=== PATIENT | female | born 1940 | race Caucasian/White ===

== ENCOUNTER 2018-01-28 06:31 | Emergency (ER) | payer OTHER | END 2018-01-28 10:33 | disposition home or self-care (01) | LOC: FTE 06:31 | DX: S79.911A Unspecified injury of right hip, initial encounter (principal); I10 Essential (primary) hypertension; J44.9 Chronic obstructive pulmonary disease, unspecified; W01.0XXA Fall on same level from slipping, tripping and stumbling without subsequent striking against object, initial encounter; Y92.9 Unspecified place or not applicable | CPT/HCPCS: 72170; 73510; 73550; 99284-25 ==

== ENCOUNTER 2018-02-01 16:10 | Inpatient (IN) | payer OTHER ==
[2018-02-01 19:41] LABS: ADD MAN DIFF? NO
[2018-02-01 19:45] LABS: BASOPHILS % 0.4 % (0.0-2.0); EOSINOPHILS # 0.1 10^3/ul (0.0-0.5); EOSINOPHILS % 0.8 % (0.0-7.0); HEMATOCRIT 43.3 % (37.0-47.0); HEMOGLOBIN 14.6 g/dl (12.0-16.0); LYMPHOCYTES # 0.8 10^3/ul (0.8-2.9); LYMPHOCYTES % 8.1 % (15.0-51.0); MEAN CORPUSCULAR HEMOGLOBIN 33.8 pg (29.0-33.0); MEAN CORPUSCULAR HGB CONC 33.7 g/dl (32.0-37.0); MEAN CORPUSCULAR VOLUME 100.2 fl (82.0-101.0); MEAN PLATELET VOLUME 9.6 fl (7.4-10.4); MONOCYTE # 0.7 10^3/ul (0.3-0.9); MONOCYTES % 7.5 % (0.0-11.0); NEUTROPHIL # 7.9 10^3/ul (1.6-7.5); NEUTROPHILS % 82.3 % (39.0-77.0); PLATELET COUNT 277 10^3/UL (140-415); RED BLOOD COUNT 4.32 10^6/ul (4.20-5.40); RED CELL DISTRIBUTION WIDTH 13.5 % (11.5-14.5)
[2018-02-01 19:45] LABS: WHITE BLOOD COUNT 9.6 10^3/ul (4.8-10.8)
[2018-02-01] MEDS: SODIUM CHLORIDE 0.9% 1L BAG IV* (19:45)
[2018-02-01] MEDS: CEFEPIME 2GM/50 ML (PMX) 50 ML IVPB (19:48)
[2018-02-01] MEDS: ACETAMINOPHEN 325 MG TAB PO (19:49)
[2018-02-01 20:04] LABS: INR 1.08; PROTIME 14.1 Sec (11.9-14.9); PT RATIO 1.1
[2018-02-01 20:05] LABS: PARTIAL THROMBOPLASTIN TIME 29.2 Sec (25.0-35.0)
[2018-02-01 20:06] LABS: ALANINE AMINOTRANSFERASE 20 IU/L (13-69); ALBUMIN 4.7 g/dl (3.3-4.9); ALBUMIN/GLOBULIN RATIO 0.97; ALKALINE PHOSPHATASE 88 IU/L (42-121); ANION GAP 23 (8-16); ASPARTATE AMINO TRANSFERASE 37 IU/L (15-46); BILIRUBIN,INDIRECT 0.3 mg/dl (0-1.1); BILIRUBIN,TOTAL 0.3 mg/dl (0.2-1.3); BLOOD UREA NITROGEN 26 mg/dl (7-20); CALCIUM 9.8 mg/dl (8.4-10.2); CARBON DIOXIDE 23 mmol/L (21-31); CHLORIDE 100 mmol/L (97-110); GLUCOSE 94 mg/dl (70-220); POTASSIUM 4.4 mmol/L (3.5-5.1); SODIUM 142 mmol/L (135-144); TOTAL PROTEIN 9.5 g/dl (6.1-8.1)
[2018-02-01 20:07] LABS: LACTIC ACID 1.5 mmol/L (0.5-2.0)
[2018-02-01 20:17] LABS: TROPONIN-I 0.023 ng/ml (0.00-0.12)
[2018-02-01] MEDS: VANCOMYCIN 1 GM (PMX) 250 ML IVPB (20:21)
[2018-02-01 21:45] LABS: LACTIC ACID 1.3 mmol/L (0.5-2.0)
[2018-02-01] MEDS ORDERED: ONDANSETRON 4 MG INJ IV ×2 (22:30→23:30)
[2018-02-01 22:38] LABS: ADD UMIC YES; UR ASCORBIC ACID NEGATIVE (NEGATIVE); UR BILIRUBIN (Dip) NEGATIVE (NEGATIVE); UR BLOOD (Dip) NEGATIVE (NEGATIVE); UR CLARITY SLIGHTLY CLOUDY (CLEAR); UR COLOR YELLOW (YELLOW); UR GLUCOSE (Dip) NEGATIVE (NEGATIVE); UR KETONES (Dip) 2+ mg/dL (NEGATIVE); UR LEUKOCYTE ESTERASE (Dip) 2+ Leu/ul (NEGATIVE); UR MUCUS FEW /HPF (NONE SEEN); UR NITRITE (Dip) NEGATIVE (NEGATIVE); UR RBC 4 /HPF (0-5); UR SPECIFIC GRAVITY (Dip) 1.034 (1.003-1.030); UR SQUAMOUS EPITHELIAL CELL FEW /HPF (FEW); UR TOTAL PROTEIN (Dip) 2+ mg/dl (NEGATIVE); UR UROBILINOGEN (Dip) NEGATIVE (NEGATIVE); UR WBC 46 /HPF (0-5)
[2018-02-01] MEDS ORDERED: ALBUTEROL/IPRATROPIUM (NEB) 3 ML AMP HHN (23:30)
[2018-02-01] MEDS ORDERED: NACL 0.9% 3 ML SYG IV (23:30)
[2018-02-01] MEDS ORDERED: NITROGLYCERIN (SL) 0.4 MG TAB SL (23:30)
[2018-02-01] MEDS: DEXTROSE 5%-0.45% NACL 1,000 ML IV (23:55)
[2018-02-02 00:33] LABS: LACTIC ACID 0.8 mmol/L (0.5-2.0)
[2018-02-02] MEDS: ACETAMINOPHEN 325 MG TAB PO ×4 (00:44→20:27)
[2018-02-02 06:33] LABS: ADD MAN DIFF? NO
[2018-02-02 06:46] LABS: WHITE BLOOD COUNT 8.6 10^3/ul (4.8-10.8)
[2018-02-02 06:46] LABS: BASOPHILS % 0.5 % (0.0-2.0); EOSINOPHILS # 0.2 10^3/ul (0.0-0.5); EOSINOPHILS % 2.8 % (0.0-7.0); HEMATOCRIT 36.3 % (37.0-47.0); HEMOGLOBIN 12.2 g/dl (12.0-16.0); LYMPHOCYTES # 0.9 10^3/ul (0.8-2.9); LYMPHOCYTES % 10.4 % (15.0-51.0); MEAN CORPUSCULAR HEMOGLOBIN 33.9 pg (29.0-33.0); MEAN CORPUSCULAR HGB CONC 33.6 g/dl (32.0-37.0); MEAN CORPUSCULAR VOLUME 100.8 fl (82.0-101.0); MEAN PLATELET VOLUME 10.2 fl (7.4-10.4); MONOCYTE # 0.8 10^3/ul (0.3-0.9); MONOCYTES % 8.8 % (0.0-11.0); NEUTROPHIL # 6.6 10^3/ul (1.6-7.5); NEUTROPHILS % 76.7 % (39.0-77.0); PLATELET COUNT 235 10^3/UL (140-415); RED CELL DISTRIBUTION WIDTH 13.3 % (11.5-14.5)
[2018-02-02 07:01] LABS: HEMOGLOBIN A1C 5.3 % (0-5.9)
[2018-02-02 07:06] LABS: ALANINE AMINOTRANSFERASE 22 IU/L (13-69); ALBUMIN 3.6 g/dl (3.3-4.9); ALKALINE PHOSPHATASE 62 IU/L (42-121); ANION GAP 17 (8-16); ASPARTATE AMINO TRANSFERASE 34 IU/L (15-46); BILIRUBIN,INDIRECT 0.2 mg/dl (0-1.1); BILIRUBIN,TOTAL 0.2 mg/dl (0.2-1.3); BLOOD UREA NITROGEN 16 mg/dl (7-20); CALCIUM 8.3 mg/dl (8.4-10.2); CARBON DIOXIDE 22 mmol/L (21-31); CHLORIDE 107 mmol/L (97-110); CHOL/HDL RATIO 3.4 RATIO; CHOLESTEROL 147 mg/dl (100-200); CREATININE 0.55 mg/dl (0.44-1.00); GLUCOSE 96 mg/dl (70-220); HDL CHOLESTEROL 43 mg/dl (33-92); LDL CHOLESTEROL,CALCULATED 83 mg/dl; MAGNESIUM 1.4 mg/dl (1.7-2.5); POTASSIUM 3.8 mmol/L (3.5-5.1); SODIUM 142 mmol/L (135-144); TOTAL PROTEIN 7.2 g/dl (6.1-8.1); TRIGLYCERIDES 103 mg/dl (0-149)
[2018-02-02 07:31] LABS: THYROID STIMULATING HORMONE 0.162 MIU/L (0.465-4.680)
[2018-02-02] MEDS: METOPROLOL 25 MG TAB PO ×2 (09:02→20:28)
[2018-02-02] MEDS: DEXTROSE 5%-0.45% NACL 1,000 ML IV ×2 (09:02→19:22)
[2018-02-02] MEDS ORDERED: ALBUTEROL 0.083% (NEB) 2.5 MG/3 ML AMP HHN (12:00)
[2018-02-02] MEDS: CEFTRIAXONE 1 GM/50 ML (PMX) 50 ML IVPB (12:08)
[2018-02-02] MEDS: AZITHROMYCIN 500MG/NS (PMX) 250 ML IVPB (12:58)
[2018-02-02] MEDS: MAGNESIUM SULFATE 2 GM/50 ML 50 ML IVPB (16:55)
[2018-02-03] MEDS: DEXTROSE 5%-0.45% NACL 1,000 ML IV ×2 (01:30→15:22)
[2018-02-03] MEDS: ACETAMINOPHEN 325 MG TAB PO ×3 (02:10→17:36)
[2018-02-03] MEDS: METOPROLOL 25 MG TAB PO (08:07)
[2018-02-03 10:40] LABS: FREE T4 (FREE THYROXINE) 1.51 ng/dl (0.78-2.44)
[2018-02-03] MEDS: CEFTRIAXONE 1 GM/50 ML (PMX) 50 ML IVPB (11:04)
[2018-02-03] MEDS: AZITHROMYCIN 500MG/NS (PMX) 250 ML IVPB (11:37)
== END 2018-02-03 19:04 | DRG 299 ==
LOC: MS3 22:08 → E/R 16:10
DX: I71.4 Abdominal aortic aneurysm, without rupture (principal); J18.9 Pneumonia, unspecified organism; M25.551 Pain in right hip; J44.9 Chronic obstructive pulmonary disease, unspecified; M77.8 Other enthesopathies, not elsewhere classified; M81.0 Age-related osteoporosis without current pathological fracture; I25.10 Atherosclerotic heart disease of native coronary artery without angina pectoris; I25.2 Old myocardial infarction
CPT/HCPCS: 36415; 71045; 73700; 74176; 80053; 80061; 81001; 83036; 83605; 83735; 84439; 84443; 84484; 85025; 85610; 85730; 87040; 87086; 93306; 96374; 96375; 97110; 97161; 99285-25

== ENCOUNTER 2018-02-18 09:07 | Emergency (ER) | payer OTHER ==
[2018-02-18 10:15] LABS: ADD MAN DIFF? NO
[2018-02-18 10:17] LABS: BASOPHIL # 0.1 10^3/ul (0.0-0.1); BASOPHILS % 0.7 % (0.0-2.0); EOSINOPHILS # 0.3 10^3/ul (0.0-0.5); EOSINOPHILS % 3.9 % (0.0-7.0); HEMOGLOBIN 12.8 g/dl (12.0-16.0); LYMPHOCYTES # 0.9 10^3/ul (0.8-2.9); LYMPHOCYTES % 11.5 % (15.0-51.0); MEAN CORPUSCULAR HEMOGLOBIN 34.9 pg (29.0-33.0); MEAN CORPUSCULAR HGB CONC 32.8 g/dl (32.0-37.0); MEAN CORPUSCULAR VOLUME 106.3 fl (82.0-101.0); MEAN PLATELET VOLUME 9.2 fl (7.4-10.4); MONOCYTE # 0.6 10^3/ul (0.3-0.9); MONOCYTES % 7.9 % (0.0-11.0); PLATELET COUNT 314 10^3/UL (140-415); RED BLOOD COUNT 3.67 10^6/ul (4.20-5.40); RED CELL DISTRIBUTION WIDTH 14.8 % (11.5-14.5)
[2018-02-18 10:37] LABS: ALANINE AMINOTRANSFERASE 24 IU/L (13-69); ALBUMIN 3.6 g/dl (3.3-4.9); ALBUMIN/GLOBULIN RATIO 0.87; ALKALINE PHOSPHATASE 69 IU/L (42-121); ANION GAP 15 (8-16); ASPARTATE AMINO TRANSFERASE 31 IU/L (15-46); BILIRUBIN,INDIRECT 0.2 mg/dl (0-1.1); BILIRUBIN,TOTAL 0.2 mg/dl (0.2-1.3); BLOOD UREA NITROGEN 14 mg/dl (7-20); CALCIUM 9.8 mg/dl (8.4-10.2); CARBON DIOXIDE 28 mmol/L (21-31); CHLORIDE 106 mmol/L (97-110); CREATININE 0.73 mg/dl (0.44-1.00); GLUCOSE 107 mg/dl (70-220); POTASSIUM 4.5 mmol/L (3.5-5.1); SODIUM 144 mmol/L (135-144); TOTAL PROTEIN 7.7 g/dl (6.1-8.1)
[2018-02-18 10:57] LABS: TROPONIN-I < 0.012 ng/ml (0.00-0.12)
== END 2018-02-18 11:40 | disposition home or self-care (01) ==
LOC: E/R 09:07
DX: J18.9 Pneumonia, unspecified organism (principal); R07.9 Chest pain, unspecified; Z87.891 Personal history of nicotine dependence
CPT/HCPCS: 36415; 71045; 80053; 84484; 85025; 93005; 99285-25

== ENCOUNTER 2018-03-02 19:58 | Inpatient (IN) | payer OTHER ==
[2018-03-02] MEDS: ONDANSETRON 4 MG INJ IV (20:48)
[2018-03-02] MEDS ORDERED: ACETAMINOPHEN 500 MG TAB (21:23)
[2018-03-02] MEDS: SODIUM CHLORIDE 0.9% 1L BAG IV* (21:25)
[2018-03-02 21:35] LABS: WHITE BLOOD COUNT 6.9 10^3/ul (4.8-10.8)
[2018-03-02 21:35] LABS: HEMATOCRIT 38.9 % (37.0-47.0); HEMOGLOBIN 13.1 g/dl (12.0-16.0); MEAN CORPUSCULAR HGB CONC 33.7 g/dl (32.0-37.0); MEAN PLATELET VOLUME 10.4 fl (7.4-10.4); PLATELET COUNT 206 10^3/UL (140-415); POSITIVE DIFF @See below; RED BLOOD COUNT 3.74 10^6/ul (4.20-5.40); RED CELL DISTRIBUTION WIDTH 15.1 % (11.5-14.5)
[2018-03-02 21:38] LABS: ADD MAN DIFF? YES
[2018-03-02 21:54] LABS: ALANINE AMINOTRANSFERASE 23 IU/L (13-69); ALKALINE PHOSPHATASE 69 IU/L (42-121); ANION GAP 18 (8-16); ASPARTATE AMINO TRANSFERASE 48 IU/L (15-46); BILIRUBIN,INDIRECT 0.4 mg/dl (0-1.1); BILIRUBIN,TOTAL 0.4 mg/dl (0.2-1.3); BLOOD UREA NITROGEN 17 mg/dl (7-20); CALCIUM 9.2 mg/dl (8.4-10.2); CARBON DIOXIDE 27 mmol/L (21-31); CHLORIDE 95 mmol/L (97-110); CREATININE 0.95 mg/dl (0.44-1.00); GLUCOSE 158 mg/dl (70-220); POTASSIUM 4.2 mmol/L (3.5-5.1); SODIUM 136 mmol/L (135-144); TOTAL PROTEIN 8.4 g/dl (6.1-8.1)
[2018-03-02] MEDS: CEFEPIME 2GM/50 ML (PMX) 50 ML IVPB (21:58)
[2018-03-02 21:59] LABS: INR 1.02; PROTIME 13.5 Sec (11.9-14.9); PT RATIO 1.1
[2018-03-02 22:00] LABS: BAND NEUTROPHILS #M 0.2 10^3/ul (0.0-0.6); BAND NEUTROPHILS % (M) 3 % (0-4); EOSINOPHILS % (M) 1 % (0-7); GIANT THROMBO% (M) 2 % (0-0); LYMPHOCYTES #M 1.3 10^3/ul (0.8-2.9); LYMPHOCYTES % (M) 20 % (15-51); MONOCYTE #M 0.7 10^3/ul (0.3-0.9); MONOCYTES % (M) 11 % (0-11); PLATELET ESTIMATE NORMAL; REACTIVE LYMPHOCYTES #M 0.2 10^3/ul (0.0-0.0); REACTIVE LYMPHOCYTES% (M) 3 % (0-0); SEG NEUT #M 4.2 10^3/ul (1.6-7.5); SEGMENTED NEUTROPHILS (M) % 61 % (39-77); SMUDGE%M 10 % (0-0)
[2018-03-02 22:04] LABS: TROPONIN-I 0.054 ng/ml (0.00-0.12)
[2018-03-02 22:16] LABS: LACTIC ACID 2.4 mmol/L (0.5-2.0)
[2018-03-02 22:56] LABS: ADD UMIC YES; UR ASCORBIC ACID NEGATIVE (NEGATIVE); UR BILIRUBIN (Dip) NEGATIVE (NEGATIVE); UR BLOOD (Dip) NEGATIVE (NEGATIVE); UR CLARITY CLOUDY (CLEAR); UR COLOR YELLOW (YELLOW); UR GLUCOSE (Dip) NEGATIVE (NEGATIVE); UR KETONES (Dip) TRACE mg/dL (NEGATIVE); UR LEUKOCYTE ESTERASE (Dip) NEGATIVE Leu/ul (NEGATIVE); UR MUCUS MANY /HPF (NONE SEEN); UR NITRITE (Dip) NEGATIVE (NEGATIVE); UR RBC 4 /HPF (0-5); UR TOTAL PROTEIN (Dip) 2+ mg/dl (NEGATIVE); UR UROBILINOGEN (Dip) NEGATIVE (NEGATIVE); UR WBC 3 /HPF (0-5)
[2018-03-02 23:25] LABS: LACTIC ACID 0.8 mmol/L (0.5-2.0)
[2018-03-03] MEDS: VANCOMYCIN 1 GM (PMX) 250 ML IVPB (00:10)
[2018-03-03] MEDS ORDERED: VANCOMYCIN IV PER PHARMACY XX (00:30)
[2018-03-03] MEDS ORDERED: LORAZEPAM 0.5 MG TAB PO (00:30)
[2018-03-03] MEDS ORDERED: CEFTRIAXONE 1 GM/50 ML (PMX) 50 ML IVPB (00:30)
[2018-03-03] MEDS ORDERED: ACETAMINOPHEN 325 MG TAB PO (00:30)
[2018-03-03] MEDS ORDERED: MAGNESIUM HYDROXIDE 30ML CUP PO (00:30)
[2018-03-03] MEDS ORDERED: AZITHROMYCIN 500MG/NS (PMX) 250 ML IV (00:30)
[2018-03-03] MEDS ORDERED: NACL 0.9% 3 ML SYG IV (00:30)
[2018-03-03] MEDS ORDERED: ALBUTEROL/IPRATROPIUM (NEB) 3 ML AMP NEB (00:30)
[2018-03-03] MEDS ORDERED: DOCUSATE SODIUM 100 MG CAP PO (00:30)
[2018-03-03] MEDS ORDERED: ONDANSETRON 4 MG INJ IV (00:30)
[2018-03-03] MEDS ORDERED: ZOLPIDEM 5 MG TAB PO (00:30)
[2018-03-03] MEDS: KETOROLAC 30 MG INJ IV (00:42)
[2018-03-03] MEDS: ALBUTEROL/IPRATROPIUM (NEB) 3 ML AMP NEB ×5 (00:52→23:47)
[2018-03-03] MEDS: MAGNESIUM SULFATE 2 GM/50 ML 50 ML IVPB ×2 (00:54→04:50)
[2018-03-03] MEDS: SALMETEROL/FLUTICASONE 500/50 INHA INH ×3 (01:00→21:37)
[2018-03-03] MEDS ORDERED: traMADol 50 MG TAB PO (01:00)
[2018-03-03] MEDS ORDERED: KETOROLAC 15 MG INJ IV (01:00)
[2018-03-03 01:45] LABS: LACTIC ACID 1.9 mmol/L (0.5-2.0)
[2018-03-03] MEDS: SOD CHLORIDE 0.9% 1,000 ML IV ×2 (03:18→05:04)
[2018-03-03] MEDS: LEVOFLOXACIN IVPB (03:26)
[2018-03-03] MEDS: [UNRECOGNIZED DRUG - OTHER] IVPB (03:26)
[2018-03-03] MEDS: OSELTAMIVIR 75 MG CAP PO ×2 (03:26→09:26)
[2018-03-03] MEDS ORDERED: GUAIFENESIN/CODEINE 5ML CUP PO (05:00)
[2018-03-03] MEDS ORDERED: METHYLPREDNISOLONE 125 MG INJ IV (06:00)
[2018-03-03] MEDS: PIPER-TAZO 3.375 GM IV (PMX) 100 ML IVPB (07:01)
[2018-03-03] MEDS: METHYLPREDNISOLONE 125 MG INJ IV ×3 (07:01→22:59)
[2018-03-03] MEDS ORDERED: LACTOBACILLUS ACIDOPHILUS PO (09:00)
[2018-03-03] MEDS: metroNIDAZOLE 0.75% 45 GM GEL TOP ×2 (09:26→23:05)
[2018-03-03] MEDS: FAMOTIDINE 20 MG TAB PO (09:26)
[2018-03-03] MEDS: ENOXAPARIN 40 MG/0.4 ML SYG SC (11:00)
[2018-03-03] MEDS: LACTOBACILLUS RHAMNOSUS CAP PO ×2 (11:00→21:31)
[2018-03-03] MEDS: IOHEXOL 100 ML (12:20)
[2018-03-03] MEDS: SOD CHLORIDE 0.9% 100 ML (12:20)
[2018-03-03] MEDS: MONTELUKAST 10 MG TAB PO (21:31)
[2018-03-03] MEDS: VANCOMYCIN 750 MG in DEXTROSE 5% 150 ML IVPB (23:45)
[2018-03-04] MEDS: LEVOFLOXACIN 250MG/D5W (PMX) 50 ML IVPB (01:01)
[2018-03-04] MEDS: METHYLPREDNISOLONE 125 MG INJ IV (05:25)
[2018-03-04 06:36] LABS: WHITE BLOOD COUNT 9.5 10^3/ul (4.8-10.8)
[2018-03-04 06:36] LABS: HEMATOCRIT 30.3 % (37.0-47.0); HEMOGLOBIN 10.3 g/dl (12.0-16.0); MEAN CORPUSCULAR HEMOGLOBIN 35.4 pg (29.0-33.0); MEAN CORPUSCULAR VOLUME 104.1 fl (82.0-101.0); MEAN PLATELET VOLUME 10.6 fl (7.4-10.4); PLATELET COUNT 183 10^3/UL (140-415); RED BLOOD COUNT 2.91 10^6/ul (4.20-5.40); RED CELL DISTRIBUTION WIDTH 15.1 % (11.5-14.5)
[2018-03-04 06:44] LABS: POSITIVE DIFF @See below
[2018-03-04 06:45] LABS: ADD MAN DIFF? YES
[2018-03-04 06:49] LABS: ALANINE AMINOTRANSFERASE 21 IU/L (13-69); ALBUMIN 2.8 g/dl (3.3-4.9); ALBUMIN/GLOBULIN RATIO 0.73; ALKALINE PHOSPHATASE 53 IU/L (42-121); ANION GAP 9 (8-16); ASPARTATE AMINO TRANSFERASE 37 IU/L (15-46); BLOOD UREA NITROGEN 10 mg/dl (7-20); CALCIUM 8.6 mg/dl (8.4-10.2); CARBON DIOXIDE 28 mmol/L (21-31); CHLORIDE 109 mmol/L (97-110); CREATININE 0.63 mg/dl (0.44-1.00); GLUCOSE 161 mg/dl (70-220); MAGNESIUM 1.7 mg/dl (1.7-2.5); POTASSIUM 3.8 mmol/L (3.5-5.1); SODIUM 142 mmol/L (135-144); TOTAL PROTEIN 6.6 g/dl (6.1-8.1)
[2018-03-04 08:01] LABS: ANISOCYTOSIS 1+ (0-0); BAND NEUTROPHILS #M 1.7 10^3/ul (0.0-0.6); BAND NEUTROPHILS % (M) 18 % (0-4); GIANT THROMBO% (M) 1 % (0-0); LYMPHOCYTES #M 0.5 10^3/ul (0.8-2.9); LYMPHOCYTES % (M) 6 % (15-51); MONOCYTES % (M) 1 % (0-11); PLATELET ESTIMATE NORMAL; SEG NEUT #M 7.3 10^3/ul (1.6-7.5); SEGMENTED NEUTROPHILS (M) % 75 % (39-77); SMUDGE%M 8 % (0-0)
[2018-03-04] MEDS: ALBUTEROL/IPRATROPIUM (NEB) 3 ML AMP NEB ×2 (09:09→16:41)
[2018-03-04] MEDS: LACTOBACILLUS RHAMNOSUS CAP PO ×2 (09:23→20:05)
[2018-03-04] MEDS: SALMETEROL/FLUTICASONE 500/50 INHA INH ×2 (09:23→20:06)
[2018-03-04] MEDS: metroNIDAZOLE 0.75% 45 GM GEL TOP ×2 (09:23→20:06)
[2018-03-04] MEDS: FAMOTIDINE 20 MG TAB PO (09:23)
[2018-03-04] MEDS: ENOXAPARIN 40 MG/0.4 ML SYG SC (09:27)
[2018-03-04] MEDS: predniSONE 20 MG TAB PO (12:28)
[2018-03-04] MEDS: MONTELUKAST 10 MG TAB PO (20:06)
[2018-03-05] MEDS: LEVOFLOXACIN 250MG/D5W (PMX) 50 ML IVPB ×2 (00:36→03:54)
[2018-03-05] MEDS: ALBUTEROL/IPRATROPIUM (NEB) 3 ML AMP NEB ×3 (04:00→09:28)
[2018-03-05] MEDS: metroNIDAZOLE 0.75% 45 GM GEL TOP (09:35)
[2018-03-05] MEDS: ENOXAPARIN 40 MG/0.4 ML SYG SC (09:36)
[2018-03-05] MEDS: LACTOBACILLUS RHAMNOSUS CAP PO (09:36)
[2018-03-05] MEDS: FAMOTIDINE 20 MG TAB PO (09:36)
[2018-03-05] MEDS: predniSONE 20 MG TAB PO (09:36)
[2018-03-05] MEDS: SALMETEROL/FLUTICASONE 500/50 INHA INH (09:37)
[2018-03-05 10:23] LABS: WHITE BLOOD COUNT 14.6 10^3/ul (4.8-10.8)
[2018-03-05 10:23] LABS: HEMOGLOBIN 10.9 g/dl (12.0-16.0); MEAN CORPUSCULAR HEMOGLOBIN 34.2 pg (29.0-33.0); MEAN CORPUSCULAR HGB CONC 32.1 g/dl (32.0-37.0); MEAN CORPUSCULAR VOLUME 106.6 fl (82.0-101.0); MEAN PLATELET VOLUME 10.2 fl (7.4-10.4); PLATELET COUNT 248 10^3/UL (140-415); RED BLOOD COUNT 3.19 10^6/ul (4.20-5.40); RED CELL DISTRIBUTION WIDTH 15.5 % (11.5-14.5)
[2018-03-05 10:25] LABS: ADD MAN DIFF? YES; POSITIVE DIFF @See below
[2018-03-05 10:36] LABS: ANION GAP 12 (8-16); BLOOD UREA NITROGEN 16 mg/dl (7-20); CALCIUM 9.3 mg/dl (8.4-10.2); CARBON DIOXIDE 27 mmol/L (21-31); CHLORIDE 108 mmol/L (97-110); CREATININE 0.88 mg/dl (0.44-1.00); GLUCOSE 128 mg/dl (70-220); POTASSIUM 3.5 mmol/L (3.5-5.1); SODIUM 143 mmol/L (135-144)
[2018-03-05 10:55] LABS: BAND NEUTROPHILS % (M) 7 % (0-4); GIANT THROMBO% (M) 1 % (0-0); LYMPHOCYTES #M 1.4 10^3/ul (0.8-2.9); LYMPHOCYTES % (M) 10 % (15-51); MONOCYTE #M 0.5 10^3/ul (0.3-0.9); MONOCYTES % (M) 4 % (0-11); MYELOCYTES #M 0.1 10^3/ul (0.0-0.0); MYELOCYTES % (M) 1 % (0-0); PLATELET ESTIMATE NORMAL; POLYCHROMASIA 1+ (0-0); REACTIVE LYMPHOCYTES #M 0.4 10^3/ul (0.0-0.0); REACTIVE LYMPHOCYTES% (M) 3 % (0-0); SEG NEUT #M 11.1 10^3/ul (1.6-7.5); SEGMENTED NEUTROPHILS (M) % 75 % (39-77); SMUDGE%M 5 % (0-0)
[2018-03-07 15:41] LABS: ALKALINE PHOSPHATASE 43 U/L (33-130); BONE ISOENZYMES 34 % (28-66); INTESTINAL ISOENZYMES 0 % (1-24); LIVER ISOENZYMES 66 % (25-69); PLACENTAL ISOENZYMES 0 % (0)
== END 2018-03-05 14:05 | disposition home or self-care (01) | DRG 872 ==
LOC: PP2 03-03 00:12 → E/R 19:58
PROVIDERS: Internal Medicine
DX: A41.9 Sepsis, unspecified organism (principal); J44.1 Chronic obstructive pulmonary disease with (acute) exacerbation; J44.0 Chronic obstructive pulmonary disease with (acute) lower respiratory infection; R65.20 Severe sepsis without septic shock; J20.9 Acute bronchitis, unspecified; E86.0 Dehydration; Z72.0 Tobacco use; I71.4 Abdominal aortic aneurysm, without rupture
CPT/HCPCS: 36415; 71045; 71275; 80048; 80053; 81001; 82962; 83605; 83735; 84080; 84484; 85025; 85610; 85730; 87040; 87086; 87400; 87430; 93005; 94640; 94664; 96365; 96375; 99291-25

== ENCOUNTER 2018-03-09 11:32 | Inpatient (IN) | payer OTHER ==
[2018-03-09] MEDS: IPRATROPIUM (NEB) 0.5 MG/2.5 ML AMP INH (12:17)
[2018-03-09] MEDS: ALBUTEROL 0.5% (NEB) 2.5 MG/0.5 ML AMP INH ×2 (12:17→13:45)
[2018-03-09 12:50] LABS: ADD MAN DIFF? NO
[2018-03-09 12:52] LABS: WHITE BLOOD COUNT 12.9 10^3/ul (4.8-10.8)
[2018-03-09 12:52] LABS: ABNORMAL IP MESSAGE 1; BASOPHIL # 0.1 10^3/ul (0.0-0.1); BASOPHILS % 0.4 % (0.0-2.0); HEMATOCRIT 35.2 % (37.0-47.0); HEMOGLOBIN 12.2 g/dl (12.0-16.0); LYMPHOCYTES # 0.4 10^3/ul (0.8-2.9); MEAN CORPUSCULAR HEMOGLOBIN 35.8 pg (29.0-33.0); MEAN CORPUSCULAR HGB CONC 34.7 g/dl (32.0-37.0); MEAN CORPUSCULAR VOLUME 103.2 fl (82.0-101.0); MEAN PLATELET VOLUME 10.4 fl (7.4-10.4); MONOCYTE # 1.1 10^3/ul (0.3-0.9); MONOCYTES % 8.8 % (0.0-11.0); NEUTROPHIL # 11.2 10^3/ul (1.6-7.5); NEUTROPHILS % 86.3 % (39.0-77.0); PLATELET COUNT 366 10^3/UL (140-415); RED BLOOD COUNT 3.41 10^6/ul (4.20-5.40); RED CELL DISTRIBUTION WIDTH 15.8 % (11.5-14.5)
[2018-03-09 12:59] LABS: POSITIVE DIFF @See below
[2018-03-09] MEDS: METHYLPREDNISOLONE 125 MG INJ IV ×2 (13:08→22:36)
[2018-03-09] MEDS: CEFEPIME 1GM/50 ML (PMX) 50 ML IVPB (13:11)
[2018-03-09 13:14] LABS: ALANINE AMINOTRANSFERASE 31 IU/L (13-69); ALBUMIN 3.6 g/dl (3.3-4.9); ALBUMIN/GLOBULIN RATIO 0.81; ALKALINE PHOSPHATASE 109 IU/L (42-121); ANION GAP 20 (8-16); ASPARTATE AMINO TRANSFERASE 31 IU/L (15-46); BILIRUBIN,INDIRECT 0.8 mg/dl (0-1.1); BILIRUBIN,TOTAL 0.8 mg/dl (0.2-1.3); BLOOD UREA NITROGEN 21 mg/dl (7-20); CALCIUM 9.2 mg/dl (8.4-10.2); CARBON DIOXIDE 29 mmol/L (21-31); CHLORIDE 99 mmol/L (97-110); CREATININE 0.61 mg/dl (0.44-1.00); GLUCOSE 167 mg/dl (70-220); POTASSIUM 3.8 mmol/L (3.5-5.1); SODIUM 144 mmol/L (135-144)
[2018-03-09 13:20] LABS: PROTIME 15.4 Sec (11.9-14.9); PT RATIO 1.2
[2018-03-09] MEDS: SODIUM CHLORIDE 0.9% 1L BAG IV* (13:20)
[2018-03-09 13:21] LABS: PARTIAL THROMBOPLASTIN TIME 37.4 Sec (25.0-35.0)
[2018-03-09 13:25] LABS: B-TYPE NATRIURETIC PEPTIDE 3760 PG/ML (0-450)
[2018-03-09] MEDS: VANCOMYCIN 1 GM (PMX) 250 ML IVPB (13:30)
[2018-03-09 13:31] LABS: LACTIC ACID 2.5 mmol/L (0.5-2.0)
[2018-03-09 13:36] LABS: ANISOCYTOSIS 2+ (0-0); BAND NEUTROPHILS #M 1.6 10^3/ul (0.0-0.6); BAND NEUTROPHILS % (M) 13 % (0-4); LYMPHOCYTES #M 0.3 10^3/ul (0.8-2.9); LYMPHOCYTES % (M) 3 % (15-51); MONOCYTE #M 0.6 10^3/ul (0.3-0.9); MONOCYTES % (M) 5 % (0-11); PLATELET ESTIMATE NORMAL; POLYCHROMASIA 1+ (0-0); SEG NEUT #M 10.4 10^3/ul (1.6-7.5); SEGMENTED NEUTROPHILS (M) % 79 % (39-77); SMUDGE%M 3 % (0-0)
[2018-03-09] MEDS ORDERED: SOD CHLORIDE 0.9% 1,000 ML IV (16:48)
[2018-03-09] MEDS ORDERED: ONDANSETRON 4 MG INJ IV (17:00)
[2018-03-09] MEDS ORDERED: ACETAMINOPHEN 325 MG TAB PO (17:00)
[2018-03-09 17:09] LABS: Allen Test ACCEPTAB; Arterial Base Excess -1.4 mmol/L (-3.0-3); Arterial Blood Gas Oxygen Sat 87.2 mmHG (95.0-100.0); Arterial COHb 1.4 % (0.0-3.0); Arterial Fraction of Oxyhgb 85.7 % (93.0-99.0); Arterial HCO3 20.7 mmol/L (22.0-26.0); Arterial MetHb 0.3 % (0.0-1.5); Arterial Total Hemglobin 11.5 g/dl (12.0-18.0); Arterial pCO2 27.3 mmhg (35-45); MODE NASAL CANNULA; Site Left Radial
[2018-03-09 17:12] LABS: LACTIC ACID 2.6 mmol/L (0.5-2.0)
[2018-03-09] MEDS: ALBUTEROL/IPRATROPIUM (NEB) 3 ML AMP HHN (17:22)
[2018-03-09 17:25] LABS: ADD UMIC YES; UR ASCORBIC ACID NEGATIVE (NEGATIVE); UR BILIRUBIN (Dip) NEGATIVE (NEGATIVE); UR BLOOD (Dip) NEGATIVE (NEGATIVE); UR CLARITY CLEAR (CLEAR); UR COLOR YELLOW (YELLOW); UR GLUCOSE (Dip) NEGATIVE (NEGATIVE); UR KETONES (Dip) 2+ mg/dL (NEGATIVE); UR LEUKOCYTE ESTERASE (Dip) 1+ Leu/ul (NEGATIVE); UR NITRITE (Dip) NEGATIVE (NEGATIVE); UR RBC 3 /HPF (0-5); UR SPECIFIC GRAVITY (Dip) 1.029 (1.003-1.030); UR SQUAMOUS EPITHELIAL CELL FEW /HPF (FEW); UR TOTAL PROTEIN (Dip) 2+ mg/dl (NEGATIVE); UR UROBILINOGEN (Dip) NEGATIVE (NEGATIVE); UR WBC 44 /HPF (0-5)
[2018-03-09] MEDS ORDERED: LEVALBUTEROL (NEB) 1.25 MG/0.5 ML AMP HHN (17:30)
[2018-03-09] MEDS ORDERED: VANCOMYCIN IV PER PHARMACY XX (17:30)
[2018-03-09] MEDS: LACTATED RINGER'S 1,000 ML IV (17:51)
[2018-03-09] MEDS: ENOXAPARIN 40 MG/0.4 ML SYG SC (17:51)
[2018-03-09] MEDS: METOPROLOL 50 MG TAB PO (22:37)
[2018-03-09 22:57] LABS: LACTIC ACID 1.4 mmol/L (0.5-2.0)
[2018-03-10] MEDS: ALBUTEROL/IPRATROPIUM (NEB) 3 ML AMP HHN ×4 (01:39→20:17)
[2018-03-10] MEDS: LACTATED RINGER'S 1,000 ML IV (03:53)
[2018-03-10] MEDS: METHYLPREDNISOLONE 125 MG INJ IV ×3 (04:59→20:35)
[2018-03-10 06:07] LABS: WHITE BLOOD COUNT 13.2 10^3/ul (4.8-10.8)
[2018-03-10 06:07] LABS: ABNORMAL IP MESSAGE 1; HEMATOCRIT 27.7 % (37.0-47.0); HEMOGLOBIN 9.4 g/dl (12.0-16.0); MEAN CORPUSCULAR HEMOGLOBIN 35.1 pg (29.0-33.0); MEAN CORPUSCULAR HGB CONC 33.9 g/dl (32.0-37.0); MEAN CORPUSCULAR VOLUME 103.4 fl (82.0-101.0); MEAN PLATELET VOLUME 10.4 fl (7.4-10.4); PLATELET COUNT 271 10^3/UL (140-415); RED BLOOD COUNT 2.68 10^6/ul (4.20-5.40); RED CELL DISTRIBUTION WIDTH 15.9 % (11.5-14.5)
[2018-03-10 06:11] LABS: ADD MAN DIFF? YES; POSITIVE DIFF @See below
[2018-03-10 06:29] LABS: ANION GAP 11 (8-16); BLOOD UREA NITROGEN 18 mg/dl (7-20); CALCIUM 8.5 mg/dl (8.4-10.2); CARBON DIOXIDE 31 mmol/L (21-31); CHLORIDE 107 mmol/L (97-110); CREATININE 0.49 mg/dl (0.44-1.00); GLUCOSE 188 mg/dl (70-220); POTASSIUM 3.7 mmol/L (3.5-5.1); SODIUM 145 mmol/L (135-144)
[2018-03-10 06:38] LABS: ANISOCYTOSIS 2+ (0-0); BAND NEUTROPHILS #M 1.3 10^3/ul (0.0-0.6); BAND NEUTROPHILS % (M) 10 % (0-4); LYMPHOCYTES #M 0.3 10^3/ul (0.8-2.9); LYMPHOCYTES % (M) 3 % (15-51); MONOCYTE #M 0.5 10^3/ul (0.3-0.9); MONOCYTES % (M) 4 % (0-11); PLATELET ESTIMATE NORMAL; POLYCHROMASIA 1+ (0-0); SEG NEUT #M 11.1 10^3/ul (1.6-7.5); SEGMENTED NEUTROPHILS (M) % 83 % (39-77)
[2018-03-10] MEDS: PANTOPRAZOLE (EC) 40 MG TAB PO (09:46)
[2018-03-10] MEDS: GUAIFENESIN LA 600 MG TABSR PO ×2 (09:46→20:34)
[2018-03-10] MEDS: METOPROLOL 50 MG TAB PO ×2 (09:47→20:35)
[2018-03-10] MEDS: ENOXAPARIN 40 MG/0.4 ML SYG SC (09:51)
[2018-03-10] MEDS: FUROSEMIDE 20 MG INJ IV (10:51)
[2018-03-10] MEDS: CEFEPIME 1GM/50 ML (PMX) 50 ML IVPB (13:52)
[2018-03-10] MEDS: VANCOMYCIN 750 MG in DEXTROSE 5% 150 ML IVPB (13:53)
[2018-03-11] MEDS: ALBUTEROL/IPRATROPIUM (NEB) 3 ML AMP HHN ×4 (01:19→19:38)
[2018-03-11] MEDS: METHYLPREDNISOLONE 125 MG INJ IV ×3 (05:15→20:42)
[2018-03-11 07:22] LABS: ADD MAN DIFF? NO
[2018-03-11 07:25] LABS: ABNORMAL IP MESSAGE 1; BASOPHILS % 0.3 % (0.0-2.0); HEMATOCRIT 27.5 % (37.0-47.0); LYMPHOCYTES # 0.4 10^3/ul (0.8-2.9); LYMPHOCYTES % 2.4 % (15.0-51.0); MEAN CORPUSCULAR HEMOGLOBIN 35.2 pg (29.0-33.0); MEAN CORPUSCULAR HGB CONC 32.7 g/dl (32.0-37.0); MEAN CORPUSCULAR VOLUME 107.4 fl (82.0-101.0); MEAN PLATELET VOLUME 10.8 fl (7.4-10.4); MONOCYTE # 0.5 10^3/ul (0.3-0.9); MONOCYTES % 3.3 % (0.0-11.0); NEUTROPHILS % 92.9 % (39.0-77.0); PLATELET COUNT 235 10^3/UL (140-415); RED BLOOD COUNT 2.56 10^6/ul (4.20-5.40); RED CELL DISTRIBUTION WIDTH 15.6 % (11.5-14.5)
[2018-03-11 07:27] LABS: POSITIVE DIFF @See below
[2018-03-11 07:55] LABS: ANION GAP 10 (8-16); BLOOD UREA NITROGEN 19 mg/dl (7-20); CALCIUM 8.4 mg/dl (8.4-10.2); CARBON DIOXIDE 31 mmol/L (21-31); CHLORIDE 103 mmol/L (97-110); CREATININE 0.63 mg/dl (0.44-1.00); GLUCOSE 162 mg/dl (70-220); POTASSIUM 3.7 mmol/L (3.5-5.1); SODIUM 140 mmol/L (135-144)
[2018-03-11 07:58] LABS: B-TYPE NATRIURETIC PEPTIDE 10200 PG/ML (0-450)
[2018-03-11] MEDS: PANTOPRAZOLE (EC) 40 MG TAB PO (08:55)
[2018-03-11] MEDS: METOPROLOL 50 MG TAB PO ×2 (08:55→20:42)
[2018-03-11] MEDS: GUAIFENESIN LA 600 MG TABSR PO ×2 (08:55→20:42)
[2018-03-11] MEDS: ENOXAPARIN 40 MG/0.4 ML SYG SC (09:33)
[2018-03-11 10:37] LABS: MAGNESIUM 1.5 mg/dl (1.7-2.5)
[2018-03-11] MEDS: POTASSIUM CHLORIDE (SR) 20 MEQ TAB PO (11:10)
[2018-03-11] MEDS: FUROSEMIDE 40 MG INJ IV (11:11)
[2018-03-11] MEDS: CEFEPIME 1GM/50 ML (PMX) 50 ML IVPB (12:52)
[2018-03-11] MEDS: MAGNESIUM SULFATE 2 GM/50 ML 50 ML IVPB (15:51)
[2018-03-11] MEDS: VANCOMYCIN 750 MG in DEXTROSE 5% 150 ML IVPB (16:20)
[2018-03-11] MEDS: FUROSEMIDE 40 MG TAB GTB (18:29)
[2018-03-12] MEDS: ALBUTEROL/IPRATROPIUM (NEB) 3 ML AMP HHN ×4 (02:16→19:49)
[2018-03-12] MEDS: METHYLPREDNISOLONE 125 MG INJ IV ×3 (04:58→21:43)
[2018-03-12] MEDS: FUROSEMIDE 40 MG TAB GTB ×2 (05:56→17:12)
[2018-03-12 07:01] LABS: ADD MAN DIFF? NO
[2018-03-12 07:08] LABS: ABNORMAL IP MESSAGE 1; BASOPHILS % 0.2 % (0.0-2.0); HEMATOCRIT 28.5 % (37.0-47.0); HEMOGLOBIN 9.5 g/dl (12.0-16.0); LYMPHOCYTES # 0.4 10^3/ul (0.8-2.9); LYMPHOCYTES % 2.3 % (15.0-51.0); MEAN CORPUSCULAR HEMOGLOBIN 35.2 pg (29.0-33.0); MEAN CORPUSCULAR HGB CONC 33.3 g/dl (32.0-37.0); MEAN CORPUSCULAR VOLUME 105.6 fl (82.0-101.0); MEAN PLATELET VOLUME 10.9 fl (7.4-10.4); MONOCYTE # 0.5 10^3/ul (0.3-0.9); MONOCYTES % 2.9 % (0.0-11.0); NEUTROPHIL # 15.3 10^3/ul (1.6-7.5); NEUTROPHILS % 93.6 % (39.0-77.0); PLATELET COUNT 256 10^3/UL (140-415); RED CELL DISTRIBUTION WIDTH 15.2 % (11.5-14.5)
[2018-03-12 07:08] LABS: WHITE BLOOD COUNT 16.4 10^3/ul (4.8-10.8)
[2018-03-12 07:12] LABS: POSITIVE DIFF @See below
[2018-03-12 07:47] LABS: B-TYPE NATRIURETIC PEPTIDE 11500 PG/ML (0-450)
[2018-03-12 07:48] LABS: ANION GAP 11 (8-16); BLOOD UREA NITROGEN 23 mg/dl (7-20); CALCIUM 8.4 mg/dl (8.4-10.2); CARBON DIOXIDE 34 mmol/L (21-31); CHLORIDE 99 mmol/L (97-110); CREATININE 0.63 mg/dl (0.44-1.00); GLUCOSE 143 mg/dl (70-220); POTASSIUM 3.6 mmol/L (3.5-5.1); SODIUM 140 mmol/L (135-144)
[2018-03-12] MEDS: GUAIFENESIN LA 600 MG TABSR PO ×2 (08:13→21:43)
[2018-03-12] MEDS: PANTOPRAZOLE (EC) 40 MG TAB PO (08:13)
[2018-03-12] MEDS: METOPROLOL 50 MG TAB PO ×2 (08:14→21:43)
[2018-03-12] MEDS: ENOXAPARIN 40 MG/0.4 ML SYG SC (08:29)
[2018-03-12 08:49] LABS: MAGNESIUM 1.7 mg/dl (1.7-2.5)
[2018-03-12] MEDS: POTASSIUM CHLORIDE (SR) 20 MEQ TAB PO (11:11)
[2018-03-12] MEDS: MAGNESIUM SULFATE 3 GM in DEXTROSE 5% 100 ML IVPB (12:01)
[2018-03-12] MEDS: CEFEPIME 1GM/50 ML (PMX) 50 ML IVPB (12:06)
[2018-03-12 16:39] LABS: VANCOMYCIN,TROUGH 5.3 ug/ml (10.0-20.0)
[2018-03-12] MEDS: VANCOMYCIN 750 MG in DEXTROSE 5% 150 ML IVPB (17:13)
[2018-03-12] MEDS: FUROSEMIDE 40 MG INJ IV (19:18)
[2018-03-12] MEDS: AZITHROMYCIN 250 MG in SOD CHLORIDE 0.9% 250 ML IVPB (19:56)
[2018-03-13] MEDS: ALBUTEROL/IPRATROPIUM (NEB) 3 ML AMP HHN ×4 (02:08→19:56)
[2018-03-13] MEDS ORDERED: VANCOMYCIN 750 MG in DEXTROSE 5% 150 ML IVPB (05:00)
[2018-03-13 05:35] LABS: AADO2 Arterial 309.8 mmHg (7.0-24.0); Allen Test ACCEPTAB; Arterial Base Excess 7.2 mmol/L (-3.0-3); Arterial Blood Gas Oxygen Sat 92.8 mmHG (95.0-100.0); Arterial COHb 1.4 % (0.0-3.0); Arterial Fraction of Oxyhgb 91.2 % (93.0-99.0); Arterial HCO3 31.8 mmol/L (22.0-26.0); Arterial MetHb 0.3 % (0.0-1.5); Arterial Total Hemglobin 10.1 g/dl (12.0-18.0); Arterial pCO2 45.3 mmhg (35-45); MODE HFNC; Site Right Radial
[2018-03-13] MEDS: FUROSEMIDE 40 MG INJ IV ×2 (06:17→18:14)
[2018-03-13 07:41] LABS: ADD MAN DIFF? NO
[2018-03-13 07:46] LABS: BASOPHILS % 0.2 % (0.0-2.0); HEMATOCRIT 29.7 % (37.0-47.0); HEMOGLOBIN 9.9 g/dl (12.0-16.0); LYMPHOCYTES # 0.8 10^3/ul (0.8-2.9); LYMPHOCYTES % 3.9 % (15.0-51.0); MEAN CORPUSCULAR HGB CONC 33.3 g/dl (32.0-37.0); MEAN CORPUSCULAR VOLUME 104.9 fl (82.0-101.0); MEAN PLATELET VOLUME 11.2 fl (7.4-10.4); MONOCYTE # 0.6 10^3/ul (0.3-0.9); MONOCYTES % 2.9 % (0.0-11.0); NEUTROPHILS % 91.2 % (39.0-77.0); NUCLEATED RED BLOOD CELLS% 0.1 /100WBC (0.0-0.0); PLATELET COUNT 284 10^3/UL (140-415); RED BLOOD COUNT 2.83 10^6/ul (4.20-5.40); RED CELL DISTRIBUTION WIDTH 15.2 % (11.5-14.5)
[2018-03-13 07:46] LABS: WHITE BLOOD COUNT 19.7 10^3/ul (4.8-10.8)
[2018-03-13 08:07] LABS: ANION GAP 8 (8-16); BLOOD UREA NITROGEN 26 mg/dl (7-20); CALCIUM 8.5 mg/dl (8.4-10.2); CARBON DIOXIDE 38 mmol/L (21-31); CHLORIDE 100 mmol/L (97-110); CREATININE 0.76 mg/dl (0.44-1.00); GLUCOSE 165 mg/dl (70-220); POTASSIUM 4.2 mmol/L (3.5-5.1); SODIUM 142 mmol/L (135-144)
[2018-03-13 08:27] LABS: MAGNESIUM 1.8 mg/dl (1.7-2.5)
[2018-03-13 08:29] LABS: B-TYPE NATRIURETIC PEPTIDE 11300 PG/ML (0-450)
[2018-03-13] MEDS: GUAIFENESIN LA 600 MG TABSR PO ×2 (08:52→22:01)
[2018-03-13] MEDS: PANTOPRAZOLE (EC) 40 MG TAB PO (08:52)
[2018-03-13] MEDS: METOPROLOL 50 MG TAB PO ×2 (08:53→22:02)
[2018-03-13] MEDS: METHYLPREDNISOLONE 125 MG INJ IV ×2 (08:53→22:01)
[2018-03-13] MEDS: ENOXAPARIN 40 MG/0.4 ML SYG SC (08:59)
[2018-03-13] MEDS: AZITHROMYCIN 250 MG in SOD CHLORIDE 0.9% 250 ML IVPB (22:00)
[2018-03-14] MEDS ORDERED: QUETIAPINE 25 MG TAB PO (01:30)
[2018-03-14] MEDS: ALBUTEROL/IPRATROPIUM (NEB) 3 ML AMP HHN ×4 (01:35→20:17)
[2018-03-14] MEDS: HALOPERIDOL 5 MG INJ IV (03:06)
[2018-03-14] MEDS: FUROSEMIDE 40 MG INJ IV (06:21)
[2018-03-14 06:48] LABS: ADD MAN DIFF? NO
[2018-03-14 06:51] LABS: WHITE BLOOD COUNT 15.3 10^3/ul (4.8-10.8)
[2018-03-14 06:51] LABS: BASOPHILS % 0.1 % (0.0-2.0); HEMATOCRIT 30.5 % (37.0-47.0); LYMPHOCYTES # 0.7 10^3/ul (0.8-2.9); LYMPHOCYTES % 4.4 % (15.0-51.0); MEAN CORPUSCULAR HEMOGLOBIN 34.7 pg (29.0-33.0); MEAN CORPUSCULAR HGB CONC 32.8 g/dl (32.0-37.0); MEAN CORPUSCULAR VOLUME 105.9 fl (82.0-101.0); MEAN PLATELET VOLUME 10.9 fl (7.4-10.4); MONOCYTE # 0.5 10^3/ul (0.3-0.9); MONOCYTES % 3.2 % (0.0-11.0); NEUTROPHIL # 13.7 10^3/ul (1.6-7.5); NEUTROPHILS % 89.9 % (39.0-77.0); NUCLEATED RED BLOOD CELLS% 0.1 /100WBC (0.0-0.0); PLATELET COUNT 274 10^3/UL (140-415); RED BLOOD COUNT 2.88 10^6/ul (4.20-5.40); RED CELL DISTRIBUTION WIDTH 15.2 % (11.5-14.5)
[2018-03-14 07:12] LABS: PHOSPHORUS 3.9 mg/dl (2.5-4.9)
[2018-03-14 07:12] LABS: MAGNESIUM 1.7 mg/dl (1.7-2.5)
[2018-03-14 07:15] LABS: ANION GAP 13 (8-16); BLOOD UREA NITROGEN 36 mg/dl (7-20); CALCIUM 8.8 mg/dl (8.4-10.2); CARBON DIOXIDE 37 mmol/L (21-31); CHLORIDE 95 mmol/L (97-110); CREATININE 0.97 mg/dl (0.44-1.00); GLUCOSE 220 mg/dl (70-220); POTASSIUM 4.3 mmol/L (3.5-5.1); SODIUM 141 mmol/L (135-144)
[2018-03-14] MEDS: PANTOPRAZOLE (EC) 40 MG TAB PO (09:31)
[2018-03-14] MEDS: GUAIFENESIN LA 600 MG TABSR PO ×2 (09:31→20:28)
[2018-03-14] MEDS: METOPROLOL 50 MG TAB PO ×2 (09:32→20:30)
[2018-03-14] MEDS: METHYLPREDNISOLONE 125 MG INJ IV ×2 (09:32→20:28)
[2018-03-14] MEDS: ENOXAPARIN 40 MG/0.4 ML SYG SC (09:38)
[2018-03-14] MEDS: FUROSEMIDE 20 MG INJ IV (19:07)
[2018-03-14] MEDS: AZITHROMYCIN 250 MG in SOD CHLORIDE 0.9% 250 ML IVPB (20:28)
[2018-03-15] MEDS: ALBUTEROL/IPRATROPIUM (NEB) 3 ML AMP HHN ×4 (01:44→20:35)
[2018-03-15] MEDS: HALOPERIDOL 5 MG INJ IV ×2 (02:21→14:11)
[2018-03-15] MEDS: FUROSEMIDE 20 MG INJ IV ×2 (06:35→17:59)
[2018-03-15 08:13] LABS: ADD MAN DIFF? NO
[2018-03-15 08:23] LABS: BASOPHILS % 0.2 % (0.0-2.0); HEMATOCRIT 32.6 % (37.0-47.0); HEMOGLOBIN 10.4 g/dl (12.0-16.0); LYMPHOCYTES # 1.3 10^3/ul (0.8-2.9); LYMPHOCYTES % 7.1 % (15.0-51.0); MEAN CORPUSCULAR HEMOGLOBIN 34.6 pg (29.0-33.0); MEAN CORPUSCULAR HGB CONC 31.9 g/dl (32.0-37.0); MEAN CORPUSCULAR VOLUME 108.3 fl (82.0-101.0); MEAN PLATELET VOLUME 11.5 fl (7.4-10.4); MONOCYTE # 0.8 10^3/ul (0.3-0.9); NEUTROPHIL # 16.2 10^3/ul (1.6-7.5); NEUTROPHILS % 86.2 % (39.0-77.0); NUCLEATED RED BLOOD CELLS # 0.1 10^3/ul (0.0-0.0); NUCLEATED RED BLOOD CELLS% 0.3 /100WBC (0.0-0.0); PLATELET COUNT 329 10^3/UL (140-415); RED BLOOD COUNT 3.01 10^6/ul (4.20-5.40); RED CELL DISTRIBUTION WIDTH 15.3 % (11.5-14.5)
[2018-03-15 08:23] LABS: WHITE BLOOD COUNT 18.8 10^3/ul (4.8-10.8)
[2018-03-15 08:33] LABS: ANION GAP 17 (8-16); BLOOD UREA NITROGEN 28 mg/dl (7-20); CALCIUM 9.2 mg/dl (8.4-10.2); CARBON DIOXIDE 37 mmol/L (21-31); CHLORIDE 93 mmol/L (97-110); CREATININE 0.78 mg/dl (0.44-1.00); GLUCOSE 280 mg/dl (70-220); POTASSIUM 4.6 mmol/L (3.5-5.1); SODIUM 142 mmol/L (135-144)
[2018-03-15 08:39] LABS: MAGNESIUM 1.7 mg/dl (1.7-2.5)
[2018-03-15 08:39] LABS: PHOSPHORUS 3.9 mg/dl (2.5-4.9)
[2018-03-15] MEDS: PANTOPRAZOLE (EC) 40 MG TAB PO (08:44)
[2018-03-15] MEDS: METOPROLOL 50 MG TAB PO ×2 (08:45→20:39)
[2018-03-15] MEDS: GUAIFENESIN LA 600 MG TABSR PO ×2 (08:45→20:38)
[2018-03-15] MEDS: METHYLPREDNISOLONE 125 MG INJ IV ×2 (08:46→20:38)
[2018-03-15] MEDS: ENOXAPARIN 40 MG/0.4 ML SYG SC (08:54)
[2018-03-15] MEDS: MAGNESIUM SULFATE 2 GM/50 ML 50 ML IVPB (14:11)
[2018-03-15] MEDS: AZITHROMYCIN 250 MG in SOD CHLORIDE 0.9% 250 ML IVPB (20:38)
[2018-03-16] MEDS: ALBUTEROL/IPRATROPIUM (NEB) 3 ML AMP HHN ×4 (02:00→19:43)
[2018-03-16] MEDS: HALOPERIDOL 5 MG INJ IV ×2 (02:55→08:43)
[2018-03-16] MEDS: FUROSEMIDE 20 MG INJ IV ×2 (06:48→17:46)
[2018-03-16 07:48] LABS: AADO2 Arterial 235.8 mmHg (7.0-24.0); Arterial Base Excess 15.1 mmol/L (-3.0-3); Arterial Blood Gas Oxygen Sat 92.4 mmHG (95.0-100.0); Arterial COHb 0.8 % (0.0-3.0); Arterial Fraction of Oxyhgb 91.4 % (93.0-99.0); Arterial HCO3 39.7 mmol/L (22.0-26.0); Arterial MetHb 0.3 % (0.0-1.5); Arterial Total Hemglobin 10.6 g/dl (12.0-18.0); Arterial pCO2 49.4 mmhg (35-45); MODE HFNC; Site Right Brachial
[2018-03-16 08:19] LABS: ADD MAN DIFF? NO
[2018-03-16 08:22] LABS: WHITE BLOOD COUNT 13.2 10^3/ul (4.8-10.8)
[2018-03-16 08:22] LABS: ABNORMAL IP MESSAGE 1; BASOPHILS % 0.1 % (0.0-2.0); HEMATOCRIT 29.1 % (37.0-47.0); HEMOGLOBIN 9.5 g/dl (12.0-16.0); LYMPHOCYTES # 0.3 10^3/ul (0.8-2.9); LYMPHOCYTES % 2.3 % (15.0-51.0); MEAN CORPUSCULAR HEMOGLOBIN 34.3 pg (29.0-33.0); MEAN CORPUSCULAR HGB CONC 32.6 g/dl (32.0-37.0); MEAN CORPUSCULAR VOLUME 105.1 fl (82.0-101.0); MEAN PLATELET VOLUME 11.4 fl (7.4-10.4); MONOCYTE # 0.4 10^3/ul (0.3-0.9); NEUTROPHIL # 12.3 10^3/ul (1.6-7.5); NEUTROPHILS % 93.1 % (39.0-77.0); NUCLEATED RED BLOOD CELLS% 0.2 /100WBC (0.0-0.0); PLATELET COUNT 249 10^3/UL (140-415); RED BLOOD COUNT 2.77 10^6/ul (4.20-5.40); RED CELL DISTRIBUTION WIDTH 14.9 % (11.5-14.5)
[2018-03-16 08:24] LABS: POSITIVE DIFF @See below
[2018-03-16] MEDS: ENOXAPARIN 40 MG/0.4 ML SYG SC (08:42)
[2018-03-16] MEDS: METHYLPREDNISOLONE 125 MG INJ IV ×2 (08:42→20:43)
[2018-03-16] MEDS: GUAIFENESIN LA 600 MG TABSR PO ×2 (08:43→20:43)
[2018-03-16] MEDS: METOPROLOL 50 MG TAB PO ×2 (08:43→20:43)
[2018-03-16] MEDS: PANTOPRAZOLE (EC) 40 MG TAB PO (08:43)
[2018-03-16 08:55] LABS: BLOOD UREA NITROGEN 25 mg/dl (7-20); CALCIUM 8.5 mg/dl (8.4-10.2); CHLORIDE 91 mmol/L (97-110); CREATININE 0.64 mg/dl (0.44-1.00); GLUCOSE 208 mg/dl (70-220); POTASSIUM 3.8 mmol/L (3.5-5.1); SODIUM 141 mmol/L (135-144)
[2018-03-16] MEDS ORDERED: PATIENT'S OWN MEDICATION PO ×2 (09:00)
[2018-03-16 09:01] LABS: ANION GAP 14 (8-16)
[2018-03-16 09:02] LABS: CARBON DIOXIDE 40 mmol/L (21-31)
[2018-03-16] MEDS: POTASSIUM CHLORIDE (SR) 20 MEQ TAB PO (12:31)
[2018-03-16] MEDS: AZITHROMYCIN 250 MG in SOD CHLORIDE 0.9% 250 ML IVPB (20:43)
[2018-03-17] MEDS: ALBUTEROL/IPRATROPIUM (NEB) 3 ML AMP HHN ×4 (01:17→19:53)
[2018-03-17] MEDS: PANTOPRAZOLE (EC) 40 MG TAB PO (06:33)
[2018-03-17] MEDS: FUROSEMIDE 20 MG INJ IV (06:34)
[2018-03-17] MEDS: GUAIFENESIN LA 600 MG TABSR PO ×2 (08:41→21:12)
[2018-03-17] MEDS: METOPROLOL 50 MG TAB PO ×2 (08:41→21:12)
[2018-03-17] MEDS: METHYLPREDNISOLONE 125 MG INJ IV ×2 (08:41→21:11)
[2018-03-17] MEDS: BALSAM PERU/CASTOR OIL 60 GM TUBE TOP (08:42)
[2018-03-17] MEDS: ENOXAPARIN 40 MG/0.4 ML SYG SC (09:09)
[2018-03-17 09:19] LABS: ADD MAN DIFF? NO
[2018-03-17 09:22] LABS: WHITE BLOOD COUNT 13.7 10^3/ul (4.8-10.8)
[2018-03-17 09:22] LABS: ABNORMAL IP MESSAGE 1; BASOPHILS % 0.1 % (0.0-2.0); HEMATOCRIT 30.5 % (37.0-47.0); HEMOGLOBIN 10.1 g/dl (12.0-16.0); LYMPHOCYTES # 0.3 10^3/ul (0.8-2.9); LYMPHOCYTES % 2.2 % (15.0-51.0); MEAN CORPUSCULAR HEMOGLOBIN 35.1 pg (29.0-33.0); MEAN CORPUSCULAR HGB CONC 33.1 g/dl (32.0-37.0); MEAN CORPUSCULAR VOLUME 105.9 fl (82.0-101.0); MEAN PLATELET VOLUME 11.5 fl (7.4-10.4); MONOCYTE # 0.5 10^3/ul (0.3-0.9); MONOCYTES % 3.4 % (0.0-11.0); NEUTROPHIL # 12.8 10^3/ul (1.6-7.5); NEUTROPHILS % 93.4 % (39.0-77.0); PLATELET COUNT 259 10^3/UL (140-415); RED BLOOD COUNT 2.88 10^6/ul (4.20-5.40); RED CELL DISTRIBUTION WIDTH 15.1 % (11.5-14.5)
[2018-03-17 09:31] LABS: POSITIVE DIFF @See below
[2018-03-17 09:45] LABS: BLOOD UREA NITROGEN 22 mg/dl (7-20); CHLORIDE 91 mmol/L (97-110); CREATININE 0.65 mg/dl (0.44-1.00); GLUCOSE 215 mg/dl (70-220); POTASSIUM 3.8 mmol/L (3.5-5.1); SODIUM 141 mmol/L (135-144)
[2018-03-17 09:46] LABS: MAGNESIUM 1.6 mg/dl (1.7-2.5)
[2018-03-17 09:53] LABS: ANION GAP 10 (8-16)
[2018-03-17 09:54] LABS: CARBON DIOXIDE 44 mmol/L (21-31)
[2018-03-17] MEDS: MAGNESIUM SULFATE 2 GM/50 ML 50 ML IVPB (12:44)
[2018-03-17] MEDS: AZITHROMYCIN 250 MG in SOD CHLORIDE 0.9% 250 ML IVPB (21:11)
[2018-03-18] MEDS: ALBUTEROL/IPRATROPIUM (NEB) 3 ML AMP HHN ×4 (01:50→19:52)
[2018-03-18 06:48] LABS: ADD MAN DIFF? NO
[2018-03-18 06:52] LABS: ABNORMAL IP MESSAGE 1; BASOPHILS % 0.2 % (0.0-2.0); HEMATOCRIT 29.9 % (37.0-47.0); HEMOGLOBIN 9.8 g/dl (12.0-16.0); LYMPHOCYTES # 0.3 10^3/ul (0.8-2.9); LYMPHOCYTES % 2.4 % (15.0-51.0); MEAN CORPUSCULAR HEMOGLOBIN 34.6 pg (29.0-33.0); MEAN CORPUSCULAR HGB CONC 32.8 g/dl (32.0-37.0); MEAN CORPUSCULAR VOLUME 105.7 fl (82.0-101.0); MEAN PLATELET VOLUME 11.6 fl (7.4-10.4); MONOCYTE # 0.4 10^3/ul (0.3-0.9); MONOCYTES % 2.8 % (0.0-11.0); NEUTROPHIL # 12.2 10^3/ul (1.6-7.5); NEUTROPHILS % 93.6 % (39.0-77.0); PLATELET COUNT 234 10^3/UL (140-415); RED BLOOD COUNT 2.83 10^6/ul (4.20-5.40); RED CELL DISTRIBUTION WIDTH 15.3 % (11.5-14.5)
[2018-03-18 07:01] LABS: POSITIVE DIFF @See below
[2018-03-18] MEDS: PANTOPRAZOLE (EC) 40 MG TAB PO (07:04)
[2018-03-18 07:06] LABS: MAGNESIUM 2.1 mg/dl (1.7-2.5)
[2018-03-18 07:21] LABS: ANION GAP 10 (8-16); BLOOD UREA NITROGEN 22 mg/dl (7-20); CALCIUM 8.7 mg/dl (8.4-10.2); CARBON DIOXIDE 39 mmol/L (21-31); CHLORIDE 96 mmol/L (97-110); CREATININE 0.54 mg/dl (0.44-1.00); GLUCOSE 188 mg/dl (70-220); POTASSIUM 4.8 mmol/L (3.5-5.1); SODIUM 140 mmol/L (135-144)
[2018-03-18] MEDS: GUAIFENESIN LA 600 MG TABSR PO ×2 (08:05→22:37)
[2018-03-18] MEDS: METOPROLOL 50 MG TAB PO ×2 (08:05→22:38)
[2018-03-18] MEDS: FUROSEMIDE 20 MG INJ IV (08:06)
[2018-03-18] MEDS: METHYLPREDNISOLONE 125 MG INJ IV (08:06)
[2018-03-18] MEDS: ENOXAPARIN 40 MG/0.4 ML SYG SC (08:08)
[2018-03-18] MEDS: BALSAM PERU/CASTOR OIL 60 GM TUBE TOP (08:10)
[2018-03-18] MEDS: METHYLPREDNISOLONE 40 MG INJ IV (22:37)
[2018-03-18] MEDS: AZITHROMYCIN 250 MG in SOD CHLORIDE 0.9% 250 ML IVPB (23:54)
[2018-03-19] MEDS: ALBUTEROL/IPRATROPIUM (NEB) 3 ML AMP HHN ×4 (01:29→19:25)
[2018-03-19 06:22] LABS: ADD MAN DIFF? NO
[2018-03-19 06:32] LABS: WHITE BLOOD COUNT 13.3 10^3/ul (4.8-10.8)
[2018-03-19 06:32] LABS: ABNORMAL IP MESSAGE 1; BASOPHILS % 0.1 % (0.0-2.0); HEMATOCRIT 29.6 % (37.0-47.0); HEMOGLOBIN 9.6 g/dl (12.0-16.0); LYMPHOCYTES # 0.3 10^3/ul (0.8-2.9); LYMPHOCYTES % 2.3 % (15.0-51.0); MEAN CORPUSCULAR HEMOGLOBIN 34.3 pg (29.0-33.0); MEAN CORPUSCULAR HGB CONC 32.4 g/dl (32.0-37.0); MEAN CORPUSCULAR VOLUME 105.7 fl (82.0-101.0); MONOCYTE # 0.4 10^3/ul (0.3-0.9); MONOCYTES % 3.3 % (0.0-11.0); NEUTROPHIL # 12.5 10^3/ul (1.6-7.5); NEUTROPHILS % 93.3 % (39.0-77.0); PLATELET COUNT 215 10^3/UL (140-415); RED CELL DISTRIBUTION WIDTH 15.1 % (11.5-14.5)
[2018-03-19 06:56] LABS: ANION GAP 11 (8-16); BLOOD UREA NITROGEN 24 mg/dl (7-20); CALCIUM 8.5 mg/dl (8.4-10.2); CARBON DIOXIDE 37 mmol/L (21-31); CHLORIDE 95 mmol/L (97-110); CREATININE 0.58 mg/dl (0.44-1.00); GLUCOSE 213 mg/dl (70-220); POTASSIUM 4.5 mmol/L (3.5-5.1); SODIUM 138 mmol/L (135-144)
[2018-03-19 06:57] LABS: POSITIVE DIFF @See below
[2018-03-19 07:01] LABS: MAGNESIUM 1.8 mg/dl (1.7-2.5)
[2018-03-19 07:01] LABS: PHOSPHORUS 4.1 mg/dl (2.5-4.9)
[2018-03-19] MEDS: METHYLPREDNISOLONE 40 MG INJ IV (08:23)
[2018-03-19] MEDS: GUAIFENESIN LA 600 MG TABSR PO ×3 (08:24→21:01)
[2018-03-19] MEDS: FUROSEMIDE 40 MG INJ IV (08:24)
[2018-03-19] MEDS: PANTOPRAZOLE (EC) 40 MG TAB PO (08:24)
[2018-03-19] MEDS: METOPROLOL 50 MG TAB PO ×3 (08:25→21:01)
[2018-03-19] MEDS: ENOXAPARIN 40 MG/0.4 ML SYG SC (08:29)
[2018-03-19] MEDS: BALSAM PERU/CASTOR OIL 60 GM TUBE TOP (08:31)
[2018-03-19] MEDS: AZITHROMYCIN 250 MG in SOD CHLORIDE 0.9% 250 ML IVPB (21:01)
[2018-03-19 22:42] LABS: AADO2 Arterial 256.9 mmHg (7.0-24.0); Allen Test ACCEPTAB; Arterial Base Excess 9.2 mmol/L (-3.0-3); Arterial Blood Gas Oxygen Sat 89.5 mmHG (95.0-100.0); Arterial COHb 1.3 % (0.0-3.0); Arterial Fraction of Oxyhgb 88.2 % (93.0-99.0); Arterial HCO3 32.5 mmol/L (22.0-26.0); Arterial MetHb 0.1 % (0.0-1.5); Arterial Total Hemglobin 11.3 g/dl (12.0-18.0); Arterial pCO2 39.3 mmhg (35-45); MODE HFNC; Site Right Radial
[2018-03-19] MEDS: METOPROLOL 5 MG INJ IV (23:28)
[2018-03-20] MEDS: ALBUTEROL/IPRATROPIUM (NEB) 3 ML AMP HHN ×4 (01:42→20:12)
[2018-03-20 06:25] LABS: ADD MAN DIFF? NO
[2018-03-20 06:26] LABS: ABNORMAL IP MESSAGE 1; BASOPHILS % 0.1 % (0.0-2.0); HEMATOCRIT 31.1 % (37.0-47.0); HEMOGLOBIN 10.2 g/dl (12.0-16.0); LYMPHOCYTES # 0.5 10^3/ul (0.8-2.9); LYMPHOCYTES % 3.9 % (15.0-51.0); MEAN CORPUSCULAR HEMOGLOBIN 35.1 pg (29.0-33.0); MEAN CORPUSCULAR HGB CONC 32.8 g/dl (32.0-37.0); MEAN CORPUSCULAR VOLUME 106.9 fl (82.0-101.0); MONOCYTE # 0.6 10^3/ul (0.3-0.9); MONOCYTES % 4.4 % (0.0-11.0); NEUTROPHIL # 12.7 10^3/ul (1.6-7.5); NEUTROPHILS % 90.5 % (39.0-77.0); PLATELET COUNT 216 10^3/UL (140-415); RED BLOOD COUNT 2.91 10^6/ul (4.20-5.40); RED CELL DISTRIBUTION WIDTH 15.3 % (11.5-14.5)
[2018-03-20 06:58] LABS: ANION GAP 9 (8-16)
[2018-03-20 07:00] LABS: MAGNESIUM 1.7 mg/dl (1.7-2.5)
[2018-03-20 07:00] LABS: PHOSPHORUS 3.8 mg/dl (2.5-4.9)
[2018-03-20 07:05] LABS: BLOOD UREA NITROGEN 41 mg/dl (7-20); CALCIUM 9.1 mg/dl (8.4-10.2); CARBON DIOXIDE 39 mmol/L (21-31); CHLORIDE 95 mmol/L (97-110); CREATININE 0.83 mg/dl (0.44-1.00); GLUCOSE 195 mg/dl (70-220); POTASSIUM 4.3 mmol/L (3.5-5.1); SODIUM 139 mmol/L (135-144)
[2018-03-20 07:13] LABS: POSITIVE DIFF @See below
[2018-03-20] MEDS: PANTOPRAZOLE (EC) 40 MG TAB PO (08:36)
[2018-03-20] MEDS: GUAIFENESIN LA 600 MG TABSR PO ×2 (08:36→21:00)
[2018-03-20] MEDS: BALSAM PERU/CASTOR OIL 60 GM TUBE TOP (08:38)
[2018-03-20] MEDS: FUROSEMIDE 40 MG INJ IV (08:38)
[2018-03-20] MEDS: METOPROLOL 50 MG TAB PO ×2 (08:38→21:00)
[2018-03-20] MEDS: ENOXAPARIN 40 MG/0.4 ML SYG SC (09:00)
[2018-03-20] MEDS ORDERED: METHYLPREDNISOLONE 40 MG INJ IV (09:00)
[2018-03-20] MEDS: AZITHROMYCIN 250 MG in SOD CHLORIDE 0.9% 250 ML IVPB (20:37)
[2018-03-21] MEDS: LORAZEPAM 2 MG INJ IV ×2 (00:30→01:50)
[2018-03-21] MEDS: ALBUTEROL/IPRATROPIUM (NEB) 3 ML AMP HHN ×4 (02:04→20:45)
[2018-03-21] MEDS: METOPROLOL 50 MG TAB PO ×2 (08:16→20:53)
[2018-03-21] MEDS: GUAIFENESIN LA 600 MG TABSR PO ×2 (08:16→20:54)
[2018-03-21] MEDS: PANTOPRAZOLE (EC) 40 MG TAB PO (08:17)
[2018-03-21] MEDS: FUROSEMIDE 40 MG INJ IV (08:17)
[2018-03-21] MEDS: BALSAM PERU/CASTOR OIL 60 GM TUBE TOP (08:17)
[2018-03-21] MEDS: ENOXAPARIN 40 MG/0.4 ML SYG SC (08:40)
[2018-03-21 08:43] LABS: ANION GAP 13 (8-16); BLOOD UREA NITROGEN 51 mg/dl (7-20); CALCIUM 8.8 mg/dl (8.4-10.2); CARBON DIOXIDE 37 mmol/L (21-31); CHLORIDE 96 mmol/L (97-110); CREATININE 0.73 mg/dl (0.44-1.00); GLUCOSE 148 mg/dl (70-220); SODIUM 142 mmol/L (135-144)
[2018-03-21 08:48] LABS: MAGNESIUM 1.8 mg/dl (1.7-2.5)
[2018-03-21] MEDS: AZITHROMYCIN 250 MG in SOD CHLORIDE 0.9% 250 ML IVPB (20:50)
[2018-03-22] MEDS: ALBUTEROL/IPRATROPIUM (NEB) 3 ML AMP HHN ×4 (01:52→20:05)
[2018-03-22] MEDS: LORAZEPAM 2 MG INJ IV (03:23)
[2018-03-22 07:35] LABS: BLOOD UREA NITROGEN 62 mg/dl (7-20); CALCIUM 9.2 mg/dl (8.4-10.2); CHLORIDE 100 mmol/L (97-110); CREATININE 0.61 mg/dl (0.44-1.00); GLUCOSE 155 mg/dl (70-220); POTASSIUM 3.6 mmol/L (3.5-5.1); SODIUM 143 mmol/L (135-144)
[2018-03-22 07:42] LABS: ANION GAP 7 (8-16); CARBON DIOXIDE 40 mmol/L (21-31)
[2018-03-22] MEDS: BALSAM PERU/CASTOR OIL 60 GM TUBE TOP (08:23)
[2018-03-22] MEDS: GUAIFENESIN LA 600 MG TABSR PO ×2 (08:23→20:01)
[2018-03-22] MEDS: PANTOPRAZOLE (EC) 40 MG TAB PO (08:23)
[2018-03-22] MEDS: METOPROLOL 50 MG TAB PO ×2 (08:23→20:01)
[2018-03-22] MEDS: ENOXAPARIN 40 MG/0.4 ML SYG SC (08:27)
[2018-03-22] MEDS: COLLAGENASE 5 GM (UD JAR) TOP (15:58)
[2018-03-22] MEDS: AZITHROMYCIN 250 MG in SOD CHLORIDE 0.9% 250 ML IVPB (19:55)
[2018-03-23] MEDS: ALBUTEROL/IPRATROPIUM (NEB) 3 ML AMP HHN ×4 (01:21→19:19)
[2018-03-23] MEDS: METOPROLOL 50 MG TAB PO ×2 (08:15→20:40)
[2018-03-23] MEDS: GUAIFENESIN LA 600 MG TABSR PO ×2 (08:15→20:40)
[2018-03-23] MEDS: PANTOPRAZOLE (EC) 40 MG TAB PO (08:16)
[2018-03-23] MEDS: BALSAM PERU/CASTOR OIL 60 GM TUBE TOP (08:16)
[2018-03-23] MEDS: COLLAGENASE 5 GM (UD JAR) TOP (08:16)
[2018-03-23] MEDS: ENOXAPARIN 40 MG/0.4 ML SYG SC (08:22)
[2018-03-23] MEDS ORDERED: COLLAGENASE 5 GM (UD JAR) TOP (09:00)
[2018-03-24] MEDS: ALBUTEROL/IPRATROPIUM (NEB) 3 ML AMP HHN ×4 (01:32→20:22)
[2018-03-24] MEDS: PANTOPRAZOLE (EC) 40 MG TAB PO (08:00)
[2018-03-24] MEDS: GUAIFENESIN LA 600 MG TABSR PO ×2 (08:00→20:25)
[2018-03-24] MEDS: METOPROLOL 50 MG TAB PO ×2 (08:02→20:25)
[2018-03-24] MEDS: COLLAGENASE 5 GM (UD JAR) TOP (08:03)
[2018-03-24] MEDS: ENOXAPARIN 40 MG/0.4 ML SYG SC (08:03)
[2018-03-24] MEDS: BALSAM PERU/CASTOR OIL 60 GM TUBE TOP (08:09)
[2018-03-24] MEDS: FUROSEMIDE 20 MG INJ IV (12:09)
[2018-03-25] MEDS: ALBUTEROL/IPRATROPIUM (NEB) 3 ML AMP HHN ×2 (01:26→08:39)
[2018-03-25] MEDS: FUROSEMIDE 20 MG INJ IV (05:04)
[2018-03-25] MEDS: PANTOPRAZOLE (EC) 40 MG TAB PO (05:04)
[2018-03-25] MEDS: LORAZEPAM 2 MG INJ IV ×4 (08:16→19:24)
[2018-03-25] MEDS: GUAIFENESIN LA 600 MG TABSR PO (09:12)
[2018-03-25] MEDS: COLLAGENASE 5 GM (UD JAR) TOP (09:13)
[2018-03-25] MEDS: METOPROLOL 50 MG TAB PO (09:13)
[2018-03-25] MEDS: ENOXAPARIN 40 MG/0.4 ML SYG SC (09:16)
[2018-03-25] MEDS: BALSAM PERU/CASTOR OIL 60 GM TUBE TOP (09:19)
[2018-03-25] MEDS ORDERED: LORAZEPAM 2 MG INJ IV ×2 (10:30→14:30)
[2018-03-25] MEDS ORDERED: morphine LIQ (20 MG/ML PO SYG) SL ×2 (10:30→14:30)
[2018-03-25] MEDS: morphine LIQ (20 MG/ML PO SYG) SL (10:51)
[2018-03-25] MEDS ORDERED: ALBUTEROL/IPRATROPIUM (NEB) 3 ML AMP HHN (14:30)
[2018-03-25] MEDS ORDERED: DIPHENHYDRAMINE 50 MG INJ IV (14:30)
[2018-03-25] MEDS ORDERED: BISACODYL 10 MG SUPP PR (14:30)
[2018-03-25] MEDS ORDERED: ACETAMINOPHEN 650 MG SUPP PR (14:30)
[2018-03-25] MEDS ORDERED: ONDANSETRON (ODT) 4 MG TAB ODT (15:30)
[2018-03-25] MEDS ORDERED: ARTIFICIAL TEARS 15 ML OPH BOTH EYES (15:30)
[2018-03-25] MEDS ORDERED: ATROPINE 1% 5 ML OPH SL (15:30)
[2018-03-25] MEDS ORDERED: DIMETHICONE STICK TOP (15:30)
[2018-03-25] MEDS: SCOPOLAMINE 1.5 MG PATCH TRANSDERM (17:54)
[2018-03-25] MEDS: morphine LIQ (20 MG/ML PO SYG) PO ×2 (17:55→20:56)
[2018-03-26] MEDS: morphine LIQ (20 MG/ML PO SYG) PO ×4 (02:47→20:57)
[2018-03-26] MEDS: LORAZEPAM 2 MG INJ IV ×4 (02:48→20:56)
[2018-03-26] MEDS: BALSAM PERU/CASTOR OIL 60 GM TUBE TOP (11:18)
[2018-03-26] MEDS: COLLAGENASE 5 GM (UD JAR) TOP (11:18)
[2018-03-27] MEDS: morphine LIQ (20 MG/ML PO SYG) PO ×2 (02:55→08:37)
[2018-03-27] MEDS: LORAZEPAM 2 MG INJ IV ×5 (02:55→21:15)
[2018-03-27] MEDS: COLLAGENASE 5 GM (UD JAR) TOP (11:24)
[2018-03-27] MEDS: BALSAM PERU/CASTOR OIL 60 GM TUBE TOP (11:24)
[2018-03-27] MEDS: morphine (DRIP) 100 MG/100 ML 100 ML IV ×2 (14:53→16:20)
[2018-03-27] MEDS ORDERED: LORAZEPAM 2 MG INJ IV (17:30)
[2018-03-28] MEDS: LORAZEPAM 2 MG INJ IV (01:00)
== END 2018-03-28 04:42 | disposition expired | DRG 871 ==
LOC: TEL 16:48 → E/R 11:32 → MS1 03-25 13:53
PROC: 3E0F7GC Introduction of Other Therapeutic Substance into Respiratory Tract, Via Natural or Artificial Opening (ICD-10-PCS; principal; 2018-03-09)
DX: A41.9 Sepsis, unspecified organism (principal); I50.33 Acute on chronic diastolic (congestive) heart failure; L89.153 Pressure ulcer of sacral region, stage 3; J96.01 Acute respiratory failure with hypoxia; J44.0 Chronic obstructive pulmonary disease with (acute) lower respiratory infection; J44.1 Chronic obstructive pulmonary disease with (acute) exacerbation; E44.0 Moderate protein-calorie malnutrition; Z68.1 Body mass index [BMI] 19.9 or less, adult; J20.9 Acute bronchitis, unspecified; Z66 Do not resuscitate; I11.0 Hypertensive heart disease with heart failure; I71.4 Abdominal aortic aneurysm, without rupture; Z85.828 Personal history of other malignant neoplasm of skin; J84.10 Pulmonary fibrosis, unspecified
CPT/HCPCS: 36415; 36600; 71045; 80048; 80053; 80202; 81001; 82803; 83605; 83735; 83880; 84100; 84484; 85025; 85610; 85730; 87040; 87081; 87400; 93005; 93308; 94640; 94644; 94645; 94664; 96372; 96374; 96375; 96376; 99291-25